=== PATIENT | male | born 1995 | race Caucasian/White ===

== ENCOUNTER 2018-12-13 13:34 | Emergency (ER) | payer SELFPAY ==
[2018-12-13 13:59] VITALS: BP 140/91; PULSE 55; TEMP 98.3; BMI 26.1
--- NOTE | 2018-12-13 14:23 | PDOC ---
History of Present Illness - General Chief Complaint: Ear Problem Stated Complaint: RT EAR CLOGGED WITH BLOOD Time Seen by Provider: 12/13/18 14:17 - History of Present Illness Initial Comments: 12/13/18 14:21 23-year-old male without comorbidities presents for leading from his right ear which occurred last night. No trauma no systemic symptoms. Past History - Past Medical History Allergies/Adverse Reactions: Allergies Allergy/AdvReac Type Severity Reaction Status Date / Time No Known Allergies Allergy Verified 12/13/18 13:40 Home Medications: Ambulatory Orders Ciprofloxacin HCl/Dexameth [Ciprodex Otic Suspension] 4 drop BID 5 Days #1 bottle 12/13/18 COPD: No - Suicide/Smoking/Psychosocial Hx Smoking History: Never smoked Hx Alcohol Use: Yes (Occasionally) Drug/Substance Use Hx: No Review of Systems - Review of Systems HEENTM: Yes: See HPI *Physical Exam - Vital Signs Last Vital Signs Temp Pulse Resp BP Pulse Ox 98.3 F 55 L 16 140/91 100 12/13/18 13:42 12/13/18 13:42 12/13/18 13:42 12/13/18 13:42 12/13/18 13:42 - Physical Exam Comments: 12/13/18 14:21 HEAD: NC/AT EYES: Conjuntiva clear Ears: Left ear canal is normal there is a tympanostomy tube in the tympanic membrane; the right ear canal has dried blood there is a rupture of the tympanic membrane I do not visualize tympanostomy tube NOSE: No d/c THROAT: Moist mucous membrances, oral pharanx clear, uvula midline NECK: Supple without adenopathy CARDIAC: S1 S2 LUNGS: CTA Full and Equal breath sounds ABDOMEN: Soft NT ND MS: Full ROM in all joints without edema NEUROLOGIC: No gross sensory or motor deficits, NVID SKIN: Normal color and temperature no lesions or rashes Medical Decision Making - Medical Decision Making 12/13/18 14:21 Tympanostomy tubes placed at age 12 patient never followed up after surgery I will have him follow-up with ENT placed on Ciprodex *DC/Admit/Observation/Transfer Diagnosis at time of Disposition: Tympanic membrane perforation - Discharge Dispostion Disposition: HOME Condition at time of disposition: Stable Decision to Admit order: No - Prescriptions Prescriptions: Ciprofloxacin HCl/Dexameth [Ciprodex Otic Suspension] 4 drop BID 5 Days #1 bottle - Referrals Referrals: Asher Smith MD [Staff Physician] - - Patient Instructions Printed Discharge Instructions: Ruptured Eardrum, DI for Tympanic Membrane Perforation-Adult Additional Instructions: Please use the antibiotic drops as directed return to the emergency room for worsening symptoms and follow-up with ear nose and throat doctor in 1-2 days without fail for further evaluation and treatment options. - Post Discharge Activity
== END 2018-12-13 14:24 | disposition home or self-care (01) ==
LOC: JERFT 13:34 → JER 13:34 → JERFT 14:24
DX: H72.91 Unspecified perforation of tympanic membrane, right ear (principal)
CPT/HCPCS: 99281-25